=== PATIENT | male | born 1965 ===

== ENCOUNTER 2022-12-11 05:30 | Day surgery (SDC) | payer OTHER ==
[~2022-12-11] VITALS: Ht 180.3 cm; Wt 111.1 kg
[~2022-12-11 05:30] MED LIST: AMBIEN10 MG PO; BREO ELLIPTA I1 EACH IH; BUSP PO; CARVEDILOL25 MG PO; GABAP PO; LOSARTAN-HCTZ1 EAC2 PO
[2022-12-11] MEDS ORDERED: PERCOCET 5-3251 EACH PO (09:09)
[2022-12-11] MEDS ORDERED: RECTICARE30 GM TOP (09:10)
== END 2022-12-11 11:40 | disposition home or self-care (01) ==
LOC: CIR.AMB 05:30
PROVIDERS: ATTEND Surgery
DX: K60.1 Chronic anal fissure (principal); K64.2 Third degree hemorrhoids; K64.4 Residual hemorrhoidal skin tags; R19.5 Other fecal abnormalities; R19.4 Change in bowel habit; I10 Essential (primary) hypertension; Z20.822 Contact with and (suspected) exposure to COVID-19; Z88.1 Allergy status to other antibiotic agents